=== PATIENT | male | born 1985 | race Caucasian/White ===

== ENCOUNTER 2017-10-01 07:24 | Emergency (ER) | payer BC, OTHER, SELFPAY ==
--- OUTSIDE RECORDS SUMMARY | 2017-10-01 07:26 | XMS REPORT | Clinical Summary ---
:1985 Author Organization [facility] Address [address] [place] [id number] Care Team Providers Name Role Phone ObedSorin DO Primary Care Provider Allergies No Known Allergies Current Medications No known medications Active Problems No known active problems Social History Tobacco Use Types Packs/Day Years Used Date Never Assessed Sex Assigned at Date Recorded Not on file Last Filed Vital Signs Not on file Plan of Treatment Health Maintenance Due Date Last Done Comments INFLUENZA VACCINE 12/24/2017 Results Not on fileafter 09/30/2016 Insurance Payer Benefit Plan / Group Subscriber ID Type Phone Address [facility] CHOICE/CHOICE + xxxxxxxxx HMO/PPO y [phone] [place] [id number]
[2017-10-01 08:09] LABS: Absolute Lymphocytes (CBC) 2.6 K/uL (0.7-4.9); Absolute Monocytes 0.6 K/uL (0.1-1.3); Absolute Neutrophil 5.7 K/uL (1.8-8.0); Basophils % 0.8 % (0-1.3); Eosinophils % 2.1 % (0-4.4); Hematocrit 44.5 % (39.6-49.0); Lymphocytes % 28.2 % (15.3-44.8); MCV 84.2 fL (80-100); MPV 9.1 fL (7.6-11.3); Monocytes % 6.2 % (3.3-12.3); RBC Red Blood Cell Count 5.29 M/uL (4.33-5.43)
[2017-10-01 08:13] LABS: Bicarbonate 25 mEq/L (21-31); Glucose Level 111 mg/dL (65-120); Potassium 3.9 mEq/L (3.6-5.0); Sodium Level 138 mEq/L (135-145)
[2017-10-01 08:19] LABS: ALT/SGPT 48 IU/L (10-60); AST/SGOT 36 IU/L (10-42); Albumin 4.2 g/dL (3.2-5.5); Alkaline Phosphatase 71 IU/L (42-121); BUN Blood Urea Nitrogen 16 mg/dL (6-20); Bilirubin Direct 0.1 mg/dL (0-0.2); Bilirubin Total 0.6 mg/dL (0.3-1.2); Protein, Total 7.4 g/dL (6.0-8.3)
[2017-10-01 08:45] LABS: Protime INR 1.05
--- NOTE | 2017-10-01 09:51 | RAD REPORT ---
EXAM DESCRIPTION: Tracy Single View10/01/2017 8:34 am CLINICAL HISTORY: Chest pain COMPARISON: none FINDINGS: The lungs appear clear of acute infiltrate. The heart is upper limits normal size IMPRESSION: No acute abnormalities displayed
[2017-10-01 09:58] LABS: Urine Blood NEGATIVE (NEG); Urine Glucose NEGATIVE (NEG); Urine Protein NEGATIVE (NEG); Urine pH 5.5 (5.0-7.0)
--- NOTE | 2017-10-01 10:49 | ER ---
Nurse's Notes [facility] Name: Donal Welch Age: 32 yrs Sex: Male : 1985 Arrival Date: 10/01/2017 Time: 07:25 Bed 5 Private MD: Diagnosis: Chest pain, unspecified;Abdominal and pelvic pain;Upper abdominal pain, unspecified Presentation: 10/01 07:19 Presenting complaint: EMS states: Chest tingling x 2 days. Pt pointing to diaphragm sv area. Pain became worse today. BP on arrival 169/105, pt placed on O2 \T\ 2L per NC 94-95% RA, chest tingling has subsided since then. Last BP 130/89. HR 86. BS-107. Transition of care: patient was not received from another setting of care. Onset of symptoms was September 29, 2017. Care prior to arrival: IV initiated. 18 GA, in the right antecubital area, Glucose check: 107 Oxygen administered. via nasal cannula. 07:19 Method Of Arrival: EMS: [facility] sv 07:19 Acuity: GORAN 3 sv 07:20 Initial Sepsis Screen: Does the patient meet any 2 criteria? No. Patient's initial sv sepsis screen is negative. Does the patient have a suspected source of infection? No. Patient's initial sepsis screen is negative. Triage Assessment: 07:25 General: Appears in no apparent distress. comfortable, obese, well developed, Behavior sv is calm, cooperative, appropriate for age. Pain: Denies pain. EENT: No signs and/or symptoms were reported regarding the EENT system. Neuro: Level of Consciousness is awake, alert, obeys commands, Oriented to person, place, time, situation, Moves all extremities. Full function Speech is normal. Cardiovascular: Reports tingling in the chest (pt points to diaphragm/epigastric area). Patient's skin is warm and dry. Respiratory: Respiratory effort is even, unlabored, Respiratory pattern is regular, symmetrical. GI: No signs and/or symptoms were reported involving the gastrointestinal system. : No signs and/or symptoms were reported regarding the genitourinary system. Derm: Skin is pink, warm \T\ dry. Musculoskeletal: No signs and/or symptoms reported regarding the musculoskeletal system. Historical: - Allergies: 07:29 No Known Allergies; sv - Home Meds: 07:29 Hydrochlorothiazide Oral [Active]; sv - PMHx: 07:29 Hypertension; sv - PSHx: 07:29 right hand cyst removal; right thumb pins; sv - Immunization history:: Adult Immunizations up to date. - Social history:: Smoking status: Patient uses tobacco products, chewing tobacco, Patient uses alcohol, occasionally. Screenin:39 Abuse screen: Denies threats or abuse. Denies injuries from another. Nutritional sv screening: No deficits noted. Tuberculosis screening: No symptoms or risk factors identified. Fall Risk None identified. Assessment: 07:29 Reassessment: pt given urinal, pt denies dizziness weakness at this time, pt using sg urinal while sitting at bedside at this time, bed in low and locked poisition, call light within reach. 08:20 Reassessment: Patient appears in no apparent distress at this time. No changes from sv previously documented assessment. Patient and/or family updated on plan of care and expected duration. Pain level reassessed. Patient is alert, oriented x 3, equal unlabored respirations, skin warm/dry/pink. 09:33 Reassessment: Patient appears in no apparent distress at this time. No changes from sv previously documented assessment. Patient and/or family updated on plan of care and expected duration. Pain level reassessed. Patient is alert, oriented x 3, equal unlabored respirations, skin warm/dry/pink. Patient denies pain at this time. Patient states feeling better. Patient states symptoms have improved. Vital Signs: 07:26 Temp 97.9(O); sg 07:29 BP 151 / 81; Pulse 100; Resp 22; Weight 148.32 kg (R); Height 6 ft. 1 in. (185.42 cm) sv (R); Pain 0/10; 08:20 BP 138 / 83; Pulse 82; Resp 20; Pulse Ox 98% on R/A; sv 09:24 BP 124 / 77; Pulse 74 MON; Resp 22; Pulse Ox 97% on R/A; sv 07:29 Body Mass Index 43.14 (148.32 kg, 185.42 cm) sv 09:24 Sinus Rhythm sv ED Course: 07:25 Patient arrived in ED. sv 07:25 Jeimy Milton, RN is Primary Nurse. sv 07:26 Initial lab(s) drawn, by me, held in ED. EKG done. Maintain EMS IV. Dressing intact. sg Good blood return noted. Site clean \T\ dry. Gauge \T\ site: 18 G RAC. Flushed right antecubital peripheral line with 5 ml normal saline. 07:27 Pedro Luis Herrera MD is Attending Physician. kdr 07:28 Triage completed. sv 07:39 ED physician to see patient. sv 07:39 Patient has correct armband on for positive identification. Placed in gown. Bed in low sv position. Call light in reach. quality assurance monitor chassis on. Pulse ox on. NIBP on. Door closed. Head of bed elevated. 07:40 Arm band placed on right wrist. sv 08:00 Urine Dipstick--Ancillary (enter results) Sent. sv 08:18 X-ray(s) taken. sv 08:32 X-ray completed. Portable x-ray completed in exam room. Patient tolerated procedure jb2 well. 08:33 XRAY Chest (1 view) In Process Unspecified. EDMS 08:44 EKG done, by fresh foods technician. reviewed by Pedro Luis Herrera MD. tc 09:28 Repeat lab(s) drawn. by il, sent to lab. sv 09:34 EKG done, by fresh foods technician. reviewed by Pedro Luis Herrera MD. jb1 Administered Medications: No medications were administered Output: 08:00 Urine: 600ml (Voided); Total: 600ml. sv Outcome: 10:48 Discharge ordered by . kdr 11:20 Patient left the ED. aa5 Signatures: Dispatcher [employer] EDMS Salvador Bowen Stephanie, RN RN sv Gay, Steven, RN RN sg Rittger, Kevin, MD MD kdr Buechter, Jesse jb2 Yadi Fowler RN RN aa5 Darcy Orlando, safety security officer EKG Ttc
--- NOTE | 2017-10-01 10:49 | EDPHYS ---
Physician Documentation [facility] Name: Donal Welch Age: 32 yrs Sex: Male : 1985 Arrival Date: 10/01/2017 Time: 07:25 Bed 5 Private MD: ED Physician Pedro Luis Herrera HPI: 10/01 08:02 This 32 yrs old Male presents to ER via EMS with complaints of Chest tingling.kdr 08:02 The patient or guardian reports chest pain that is located primarily in the epigastric kdr area, upper abdomen/infracostal. The pain does not radiate. Associated signs and symptoms: The patient has no apparent associated signs or symptoms. The chest pain is described as a pressure, tingling in his upper adomen. Duration: The patient or guardian reports multiple episodes, that are intermittent, that wax and wane, with no pattern, Has been ongoing for the last two days. Has not had this before. Modifying factors: The symptoms are alleviated by nothing. the symptoms are aggravated by nothing. Severity of pain: At its worst the pain was mild in the emergency department the pain is unchanged. EMS care prior to arrival includes: supplemental oxygen. The patient has not experienced similar symptoms in the past. The patient has not recently seen a physician. The patient has been off of his BP meds for the last one to two years.. Historical: - Allergies: 07:29 No Known Allergies; sv - Home Meds: 07:29 Hydrochlorothiazide Oral [Active]; sv - PMHx: 07:29 Hypertension; sv - PSHx: 07:29 right hand cyst removal; right thumb pins; sv - Immunization history:: Adult Immunizations up to date. - Social history:: Smoking status: Patient uses tobacco products, chewing tobacco, Patient uses alcohol, occasionally. ROS: 08:02 Constitutional: Negative for fever, chills, and weight loss, Eyes: Negative for injury, kdr pain, redness, and discharge, ENT: Negative for injury, pain, and discharge, Neck: Negative for injury, pain, and swelling, Respiratory: Negative for shortness of breath, cough, wheezing, and pleuritic chest pain, Abdomen/GI: Negative for abdominal pain, nausea, vomiting, diarrhea, and constipation, Back: Negative for injury and pain, : Negative for injury, bleeding, discharge, and swelling, MS/Extremity: Negative for injury and deformity, Skin: Negative for injury, rash, and discoloration, Neuro: Negative for headache, weakness, numbness, tingling, and seizure activity. Psych: Negative for depression, anxiety, suicide ideation, homicidal ideation, and hallucinations, Allergy/Immunology: Negative for hives, rash, and allergies, Endocrine: Negative for neck swelling, polydipsia, polyuria, polyphagia, and marked weight changes, Hematologic/Lymphatic: Negative for swollen nodes, abnormal bleeding, and unusual bruising. 08:02 Cardiovascular: Positive for Low chest/upper abdomen. Exam: 08:02 Constitutional: This is a well developed, well nourished patient who is awake, alert, kdr and in no acute distress. Head/Face: Normocephalic, atraumatic. Eyes: Pupils equal round and reactive to light, extra-ocular motions intact. Lids and lashes normal. Conjunctiva and sclera are non-icteric and not injected. Cornea within normal limits. Periorbital areas with no swelling, redness, or edema. Neck: Trachea midline, no thyromegaly or masses palpated, and no cervical lymphadenopathy. Supple, full range of motion without nuchal rigidity, or vertebral point tenderness. No Meningismus. Chest/axilla: Normal chest wall appearance and motion. Nontender with no deformity. No lesions are appreciated. Cardiovascular: Regular rate and rhythm with a normal S1 and S2. No gallops, murmurs, or rubs. Normal PMI, no JVD. No pulse deficits. Respiratory: Lungs have equal breath sounds bilaterally, clear to auscultation and percussion. No rales, rhonchi or wheezes noted. No increased work of breathing, no retractions or nasal flaring. Abdomen/GI: Soft, non-tender, with normal bowel sounds. No distension or tympany. No guarding or rebound. No evidence of tenderness throughout. Back: No spinal tenderness. No costovertebral tenderness. Full range of motion. Skin: Warm, dry with normal turgor. Normal color with no rashes, no lesions, and no evidence of cellulitis. MS/ Extremity: Pulses equal, no cyanosis. Neurovascular intact. Full, normal range of motion. Neuro: Awake and alert, GCS 15, oriented to person, place, time, and situation. Cranial nerves II-XII grossly intact. Motor strength 5/5 in all extremities. Sensory grossly intact. Cerebellar exam normal. Normal gait. Psych: Awake, alert, with orientation to person, place and time. Behavior, mood, and affect are within normal limits. Vital Signs: 07:26 Temp 97.9(O); sg 07:29 BP 151 / 81; Pulse 100; Resp 22; Weight 148.32 kg (R); Height 6 ft. 1 in. (185.42 cm) sv (R); Pain 0/10; 08:20 BP 138 / 83; Pulse 82; Resp 20; Pulse Ox 98% on R/A; sv 09:24 BP 124 / 77; Pulse 74 MON; Resp 22; Pulse Ox 97% on R/A; sv 07:29 Body Mass Index 43.14 (148.32 kg, 185.42 cm) sv 09:24 Sinus Rhythm sv MDM: 08:02 HEART Score: History: Slightly Suspicious (0), ECG: Normal (0), Age: < or = 45 years kdr (0), Risk Factors: 1 or 2 risk factors (1), Troponin: < or = 1 x Normal Limit (0), Total Score =. Data reviewed: vital signs, nurses notes, EMS record, lab test result(s), EKG, radiologic studies. Counseling: I had a detailed discussion with the patient and/or guardian regarding: the historical points, exam findings, and any diagnostic results supporting the discharge/admit diagnosis, lab results, radiology results, the need for outpatient follow up. 10:46 ED course: Heart Score=1, tow trop negative. EKG ns changes. kdr 10:48 Patient medically screened. kdr 10/01 07:46 Order name: Basic Metabolic Panel; Complete Time: 09: kdr 10/01 07:46 Order name: BNP; Complete Time: 09: kdr 10/01 07:46 Order name: CBC with Diff; Complete Time: 09: kdr 10/01 07:46 Order name: LFT's; Complete Time: 09: kdr 10/01 07:46 Order name: Magnesium; Complete Time: 09: kdr 10/01 07:46 Order name: PT-INR; Complete Time: 09: kdr 10/01 07:46 Order name: Ptt, Activated; Complete Time: 09: kdr 10/01 07:46 Order name: Troponin (emerg Dept Use Only); Complete Time: 09:07 kdr 10/01 07:46 Order name: XRAY Chest (1 view); Complete Time: 10:05 kdr 10/01 07:46 Order name: EKG; Complete Time: 07:47 kdr 10/01 07:46 Order name: Cardiac monitoring; Complete Time: 07:50 kdr 10/01 07:59 Order name: Urine Dipstick--Ancillary (enter results); Complete Time: 10:05 bd 10/01 09:18 Order name: Troponin (emerg Dept Use Only); Complete Time: 10:45 kdr 10/01 09:24 Order name: EKG; Complete Time: 09:24 sv 10/01 07:46 Order name: EKG - Nurse/Tech; Complete Time: 07:50 kdr 10/01 07:46 Order name: IV Saline Lock; Complete Time: 07:50 kdr 10/01 07:46 Order name: Labs collected and sent; Complete Time: 07:50 kdr 10/01 07:46 Order name: O2 Per Protocol; Complete Time: 07:50 kdr 10/01 07:46 Order name: O2 Sat Monitoring; Complete Time: 07:50 kdr 10/01 07:46 Order name: Urine Dipstick-Ancillary (obtain specimen); Complete Time: 08:00 kdr 10/01 09:18 Order name: EKG - Nurse/Tech; Complete Time: 09:34 kdr Administered Medications: No medications were administered Disposition: 10/01/17 10:48 Discharged to Home. Impression: Chest pain, unspecified, Abdominal and pelvic pain, Upper abdominal pain, unspecified. - Condition is Stable. - Discharge Instructions: Abdominal Pain, Adult, [id number], Nonspecific Chest Pain, [id number]. - Work release form, Medication Reconciliation Form, Thank You Letter, Antibiotic Education, Prescription Opioid Use form. - Follow up: Private Physician; When: 2 - 3 days; Reason: If symptoms return, Further diagnostic work-up, Recheck today's complaints, Continuance of care, Re-evaluation by your physician. - Problem is new. - Symptoms have improved. Signatures: Dispatcher [employer] Jeimy Cabral RN RN Pedro Luis Salazar MD MD [facility] Yadi Fowler RN RN aa5 Corrections: (The following items were deleted from the chart) 11:20 10:48 10/01/2017 10:48 Discharged to Home. Impression: Chest pain, unspecified; aa5 Abdominal and pelvic pain; Upper abdominal pain, unspecified. Condition is Stable. Forms are Medication Reconciliation Form, Thank You Letter, Antibiotic Education, Prescription Opioid Use. Follow up: Private Physician; When: 2 - 3 days; Reason: If symptoms return, Further diagnostic work-up, Recheck today's complaints, Continuance of care, Re-evaluation by your physician. Problem is new. Symptoms have improved. kdr
--- NOTE | 2017-10-01 11:58 | EKG ---
Test Date: 2017-10-01 Test Time: 09:30:07 Keyseater Operator: NIEVES MEASUREMENT RESULTS: Intervals: Rate: 67 KS: 142 QRSD: 98 QT: 408 QTc: 431 [place]: P: 27 KS: 142 QRS: 24 T: 80 INTERPRETIVE STATEMENTS: Normal sinus rhythm Nonspecific T wave abnormality Abnormal ECG Compared to ECG 10/01/2017 07:24:54 No significant changes Electronically Signed On 10-01-17 11:57:57 CDT by Jorge Grey
--- NOTE | 2017-10-01 11:58 | EKG ---
Test Date: 2017-10-01 Test Time: 07:24:54 Assembly Detailer: NIEVES MEASUREMENT RESULTS: Intervals: Rate: 84 NC: 146 QRSD: 100 QT: 386 QTc: 456 [place]: P: 32 NC: 146 QRS: 14 T: 52 INTERPRETIVE STATEMENTS: Normal sinus rhythm Nonspecific T wave abnormality Abnormal ECG No previous ECG available for comparison Electronically Signed On 10-01-17 11:58:39 CDT by Jorge Grey
== END 2017-10-01 11:20 | disposition home or self-care (01) ==
LOC: ER 07:24
DX: R10.2 Pelvic and perineal pain (principal); R10.10 Upper abdominal pain, unspecified; I10 Essential (primary) hypertension; Z72.0 Tobacco use
CPT/HCPCS: 36415; 71045; 80048; 80076; 81003; 83735; 83880; 84484; 85025; 85610; 85730; 93005; 99285